=== PATIENT | male | born 2000 | race Caucasian/White ===

== ENCOUNTER 2022-05-03 17:37 | Emergency (ER) | payer BC ==
[~2022-05-03] VITALS: Ht 177.8 cm; Wt 162.2 kg
[~2022-05-03 17:37] MED LIST: PROMETHAZINE-COD5 ML PO
[2022-05-03] MEDS ORDERED: DOXYCYCLINE HY100 MG PO (22:23)
--- NOTE | 2022-05-04 06:33 | EKG ---
[facility] [address] [facility] [place] [address] Signed Normal sinus rhythm Low voltage QRS Borderline ECG No previous ECGs available Confirmed by STEPHEN OCHOA MD ([id number]) on 05/04/2022 6:33:34 AM Electronically Signed By: STEPHEN OCHOA MD 05/04/22 0633 PATIENT NAME: RAYRAY GUARDADO Electrocardiogram DATE OF : [birth year] PHYSICIAN: STEPHEN OCHOA MD REPORT #: [id number] REPORT IS CONFIDENTIAL AND NOT TO BE RELEASED WITHOUT AUTHORIZATION
== END 2022-05-03 23:34 | disposition home or self-care (01) ==
LOC: ED 17:37
DX: L03.116 Cellulitis of left lower limb (principal); L03.115 Cellulitis of right lower limb; Z88.2 Allergy status to sulfonamides; Z91.040 Latex allergy status; Z20.822 Contact with and (suspected) exposure to COVID-19
CPT/HCPCS: 36415; 71045; 80053; 81001; 83605; 85025; 87502; 93005; 93010; 96365; 96366; 99284-25; A9270; C9803; J3370; J7030; J7060; U0003

== ENCOUNTER 2022-11-15 19:44 | Emergency (ER) | payer BC ==
[~2022-11-15] VITALS: Ht 177.8 cm; Wt 157.1 kg
[~2022-11-15 19:44] MED LIST changes: +DOXYCYCLINE HY100 MG PO
[2022-11-15] MEDS ORDERED: OMEPRAZOLE20 MG PO ×2 (19:56→21:00)
--- NOTE | 2022-11-16 07:46 | EKG ---
[facility] [address] [facility] [place], [place] [address] Signed Normal sinus rhythm with sinus arrhythmia Normal ECG When compared with ECG of 03-MAY-2022 18:42, No significant change was found Confirmed by STEPHEN OCHOA MD ([id number] on 11/16/2022 7:46:34 AM Electronically Signed By: STEPHEN OCHOA MD 11/16/22 0746 PATIENT NAME: RAYRAY GUARDADO Electrocardiogram DATE OF : [birth year] PHYSICIAN: STEPHEN OCHOA MD REPORT #: [id number] REPORT IS CONFIDENTIAL AND NOT TO BE RELEASED WITHOUT AUTHORIZATION
== END 2022-11-15 21:30 | disposition home or self-care (01) ==
LOC: ED 19:44
DX: R07.89 Other chest pain (principal); K21.9 Gastro-esophageal reflux disease without esophagitis; I25.10 Atherosclerotic heart disease of native coronary artery without angina pectoris; Z88.2 Allergy status to sulfonamides; Z91.040 Latex allergy status; Z79.899 Other long term (current) drug therapy
CPT/HCPCS: 71045; 93005; 93010; 99285-25